=== PATIENT | female | born 1970 | race Two or more races ===

== ENCOUNTER 2017-01-13 11:07 | Emergency (ER) | payer OTHER ==
[~2017-01-13] VITALS: Ht 162.6 cm; Wt 84.6 kg
[~2017-01-13 11:07] MED LIST: ATEN50TA PO; CHOL20009 PO; FERR325T72 PO; FEXO180T81 PO; FLUT16SP2 NS; LISI1TAB7 PO; OMEP20CA5 PO; VALS160T3 PO
--- NOTE | 2017-01-13 11:30 | PHYS DOC ---
Past History Past Medical History: GERD, Hypertension, IBS, Other Past Surgical History: Other Smoking: Quit Greater Than 1 Year Alcohol Use: None Drug Use: None Adult General Chief Complaint Chief Complaint: HAND PROBLEM HPI HPI Patient is a 46-year-old female complaining of pain in her left hand, wrist, and forearm. She has not had any injury to this area. 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 She is right-handed. She noted that her left hand hurts when she approximates her thumb and index finger, and it hurts all the way down into her wrist and ventral aspect of her forearm. She's never had this before. She felt like she could not go to work today because it hurts so much and she does use her left hand at work. She took Tylenol without relief. She denies pain in any other joint. Review of Systems Review of Systems Constitutional: Denies fever or chills [] Musculoskeletal: Denies pain in any other joint Allergies Allergies Allergies Coded Allergies Type Severity Reaction Last Updated Verified Penicillins Allergy Intermediate Rash 03/23/14 Yes Physical Exam Physical Exam Constitutional: Well developed, well nourished, no acute distress, non-toxic appearance. Alert, mentating normally. HENT: Normocephalic, atraumatic, bilateral external ears normal, nose normal. [ ] Eyes: conjunctiva normal, no discharge. [] Skin: Warm, dry, no erythema, no rash. [] Extremities: Left hand without swelling, redness, or deformity. Mild tenderness to palpation of the thenar eminence and proximally over the tendons of the ventral aspect of the wrist. Full range of motion of the fingers is present with some pain over the wrist tendons. Neurologic: Alert and oriented X 3, normal motor function, normal sensory function, no focal deficits noted. [] EKG EKG [] Radiology/Procedures Radiology/Procedures [] Course & Med Decision Making Course & Med Decision Making Pertinent Labs and Imaging studies reviewed. (See chart for details) 46-year-old right-handed female presents with 2 days of left hand, wrist, and forearm pain that sounds like tendinitis. She has not had an injury. She has not had any recent overuse pattern or change in use. There is no indication for x-ray today. Discussed with her ice, instead, she does have a PCP to follow up if not improving with this treatment. She was placed in a Velcro splint. [] Dragon Disclaimer Dragon Disclaimer This chart was dictated in whole or in part using Voice Recognition software in a busy, high-work load, and often noisy Emergency Department environment. It may contain unintended and wholly unrecognized errors or omissions. Departure Departure: Impression: Primary Impression: Left wrist tendinitis Disposition: HOME, SELF-CARE Condition: STABLE Referrals: JACKIE LOVE (PCP) Additional Instructions: As we discussed, I believe your pain is from tendinitis, inflamed tendons in the left hand and wrist. I recommend resting the tendons by using the Velcro wrist splint for 3-5 days. You may remove it to shower and wash your hands.. It night for 1-2 days, then you can decide whether it feels better if you do or do not wear it at night and decide based on that. Ice 15-20 minutes out of every 1-2 hours for pain and inflammation. Ibuprofen 600 mg every 6-8 hours regularly for 2-3 days then as needed. If not improving after 3-5 days, see your doctor for recheck. ENZO BUCHANAN MD January 13, 2017 11:30
[2017-01-13 11:42] VITALS: BP 148/58
== END 2017-01-13 11:38 | disposition home or self-care (01) ==
LOC: ER 11:07
DX: M77.8 Other enthesopathies, not elsewhere classified (principal); I10 Essential (primary) hypertension; K21.9 Gastro-esophageal reflux disease without esophagitis; K58.9 Irritable bowel syndrome, unspecified; Z87.891 Personal history of nicotine dependence; Z88.0 Allergy status to penicillin
CPT/HCPCS: 29125; 99283-25

== ENCOUNTER 2017-01-19 16:42 | Observation (INO) | payer OTHER ==
[~2017-01-19] VITALS: Ht 162.6 cm; Wt 82.7 kg
[2017-01-19] VITALS (8 sets, daily range): BP systolic 132–150; BP diastolic 54–76
[2017-01-19 18:11] LABS: BASO % 0 % (0-3); EOS % 0 % (0-3); LYMPH # 1.3 x10^3/uL (1.0-4.8); LYMPH % 11 % (24-48); MEAN CORPUSCULAR HEMOGLOBIN 15 pg (25-35); MEAN CORPUSCULAR HGB CONC 28 g/dL (31-37); MEAN CORPUSCULAR VOLUME 54 fL (79-100); MONO # 0.3 x10^3/uL (0.0-1.1); MONO % 3 % (0-9); NEUT # 10.5 x10^3uL (1.8-7.7); NEUT % 86 % (31-73); PLATELET COUNT 308 x10^3/uL (140-400); RED BLOOD COUNT 4.09 x10^6/uL (3.50-5.40); RED CELL DISTRIBUTION WIDTH 22.2 % (11.5-14.5); WHITE BLOOD COUNT 12.1 x10^3/uL (4.0-11.0)
--- NOTE | 2017-01-19 18:11 | PHYS DOC ---
Text Text Patient with chronic anemia likely related to menorrhagia. Patient symptomatic with activity, hemoglobin 6.2. Dr. Dai to admit with anticipated transfusion. (PUNEET MENDENHALL DO) General Chief Complaint: ABNORMAL LABS Stated Complaint: anemia Time Seen by MD: 17:23 Source: patient Exam Limitations: no limitations Problems: (SACHI FALLON DO) History of Present Illness Initial Comments Pt is 46/F to ED sent by Dr Bueno at [place] for anemia. Dr Bueno called and gave me report, pt was seen today for allergy symptoms and mentioned she'd been fatigued. Labs drawn to go over later this week, however critical Hb 6.1 "very microcytic" reported. Dr Bueno sent pt to ED for further eval. Pt states she used to take iron supplements, about one year ago states her doctor told her she wasn't anemic and recommended d/c iron supplements. Pt has noticed past 3 weeks or so KISER when climbing stairs and occasional global REINA. No cp/sob, pt currently menstruating but no abnormal vaginal bleeding. No h/o easy bruising/bleeding, last labs 06/10 Hb 14.1 normocytic. Timing/Duration: getting worse (3 wks) Severity: severe Modifying Factors: worse with movement, improves with rest Associated Symptoms: headaches, shortness of breath, other (SACHI FALLON DO) Allergies: Coded Allergies: Penicillins (Verified Allergy, Intermediate, Rash, 03/23/14) Past Medical History Medical History: other (HTN, IBS, iron deficiency anemia) Surgical History: noncontributory (SACHI FALLON DO) Social History Smoker: non-smoker Alcohol: none Drugs: none (SACHI FALLON DO) Review of Systems Constitutional: denies chills, denies diaphoresis, denies fever, malaise Respiratory: see HPI, denies cough, shortness of breath, denies wheezing Cardiovascular: denies chest pain, denies palpitations, denies syncope Gastrointestinal: denies abdominal pain, denies diarrhea, denies nausea, denies vomiting Musculoskeletal: denies back pain, denies joint swelling, denies neck pain Psychiatric/Neurological: see HPI, denies numbness, denies paresthesia, denies weakness Hematologic/Lymphatic: see HPI, denies blood clots, denies easy bleeding, denies easy bruising (SACHI FALLON DO) Physical Exam General Appearance: WD/WN, no apparent distress Eyes: bilateral eye normal inspection, bilateral eye PERRL, bilateral eye EOMI Ear, Nose, Throat: hearing grossly normal, normal ENT inspection, normal pharynx Neck: non-tender, supple Respiratory: normal breath sounds, no respiratory distress Cardiovascular: normal peripheral pulses, regular rate, rhythm Gastrointestinal: non tender, soft Back: no CVA tenderness, no vertebral tenderness Extremities: non-tender, normal inspection Neurologic/Psychiatric: 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 See that documentation for results/disposition. (SACHI FALLON DO) SACHI FALLON DO January 19, 2017 18:11 PUNEET MENDENHALL DO January 20, 2017 00:22
[2017-01-19 18:17] LABS: CALCIUM 9.2 mg/dL (8.5-10.1); CREATININE 0.7 mg/dL (0.6-1.0); GFR 90.1; POTASSIUM 3.7 mmol/L (3.5-5.1)
[2017-01-19 18:18] LABS: HEMOGLOBIN 6.2 g/dL (12.0-15.5)
[2017-01-19] MEDS ORDERED: ONDANSETRON PF 4 MG/2 ML VIAL. IV PRN (18:45)
[2017-01-19] MEDS ORDERED: IV NORMAL SALINE 250ML 250 ML ONE (19:49)
[2017-01-19 22:33] LABS: ANISOCYTOSIS MOD; HYPOCHROMIA MOD; MICROCYTOSIS MOD; OVALOCYTES FEW; PLT ESTIMATE ADEQUATE (ADEQUATE); TARGET CELLS FEW; TEAR DROP CELLS FEW
[2017-01-19 22:34] LABS: POLYCHROMASIA PRESENT
[2017-01-20] VITALS (8 sets, daily range): BP systolic 122–144; BP diastolic 58–77
[2017-01-20] MEDS ORDERED: VALS1TAB8 PO (01:48)
[2017-01-20 06:17] LABS: BASO # 0.1 x10^3/uL (0.0-0.2); BASO % 1 % (0-3); EOS # 0.1 x10^3/uL (0.0-0.7); EOS % 1 % (0-3); HEMATOCRIT 27.7 % (36.0-47.0); LYMPH # 2.7 x10^3/uL (1.0-4.8); LYMPH % 21 % (24-48); MEAN CORPUSCULAR HEMOGLOBIN 19 pg (25-35); MEAN CORPUSCULAR HGB CONC 31 g/dL (31-37); MEAN CORPUSCULAR VOLUME 61 fL (79-100); MONO # 0.8 x10^3/uL (0.0-1.1); MONO % 6 % (0-9); NEUT # 9.2 x10^3uL (1.8-7.7); NEUT % 72 % (31-73); PLATELET COUNT 263 x10^3/uL (140-400); RED BLOOD COUNT 4.53 x10^6/uL (3.50-5.40); RED CELL DISTRIBUTION WIDTH 33.2 % (11.5-14.5); WHITE BLOOD COUNT 12.9 x10^3/uL (4.0-11.0)
[2017-01-20 06:20] LABS: HEMOGLOBIN 8.5 g/dL (12.0-15.5)
[2017-01-20] MEDS ORDERED: IRON SUCROSE COMPLEX 200 MG in IV NORMAL SALINE 100ML 100 ML IV ONE (14:00)
--- NOTE | 2017-01-20 17:32 | HP ---
ADMIT DATE: 01/19/2017 HISTORY OF PRESENT ILLNESS: The patient is a 46-year-old , who was sent to the Emergency Room by her primary care physician from [place] for severe anemia. She apparently went there for treatment of her seasonal allergy and complained that she is markedly fatigued, so had lab drawn and showed that her hemoglobin was only 6.1 and her MCV was extremely low. She was sent to the Emergency Room at [facility] for further evaluation and treatment. Apparently, the patient stated that she is having marked weakness and fatigue. She has also had noticed for the last 3 weeks that she is dyspneic on exertion when climbing stairs and occasional global headache; however, denied any chest pain or shortness of breath at rest. She is still having her periods. In fact, yesterday was the last day of her last period. She stated that her periods are regular, it lasts about 5 days. She denied any hematemesis, melena or hematochezia. Denied any hematuria. Denied any easy bruising or bleeding. Her last hemoglobin was on 06/10/2016 and was 14.1 and at that time she was normochromic normocytic. Her lab work that was done in the Emergency Room confirmed that she is anemic with hemoglobin 6.2 and MCV of 54 and therefore, the patient was admitted and she received 2 units of packed RBCs. PAST MEDICAL HISTORY: Significant for iron deficiency anemia treated before and investigated the upper and lower GI endoscopy. She is known to have hypertension and acid reflux. She has also lactose intolerance, irritable bowel syndrome and degenerative disk disease. PAST SURGICAL HISTORY: Significant for left ankle surgery, together with upper GI endoscopy and colonoscopy. ALLERGIES: She is allergic to PENICILLINS. MEDICATIONS: She is currently on following medications: She is on atenolol 50 mg once a day, cholecalciferol for vitamin D3 2000 international units once a day, fexofenadine for Kadi 180 mg once a day, Flonase 2 sprays to each nostril once a day, omeprazole for Prilosec 20 mg once a day, valsartan/hydrochlorothiazide 160/12.5 mg once a day. FAMILY HISTORY: She has 6 brothers and 1 sister. Her father at the age of 40 because of myocardial infarction. Mother is still alive at age of 62 and is known to have diabetes and hypertension. SOCIAL HISTORY: She is , has 1 daughter, never smoked. Does not drink alcohol or use any recreational drugs. 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 She is originally from [facility]. REVIEW OF SYSTEMS: The patient denied any blurring of vision, cataract, glaucoma or macular degeneration. Denied any earache, tinnitus or sensorineural deafness. Denied any nosebleeds, stuffy nose or postnasal drip. Denied any sore throat, sore tongue, toothache, hoarseness of voice or difficulty swallowing. Denied any nausea, vomiting, diarrhea or constipation. Denied any hematemesis, melena or hematochezia. Denied any dysuria, frequency or hematuria. Denied any chest pain. Did complain of shortness of breath on exertion. Denied any cough, phlegm or hemoptysis. Denied any chills, rigors or fever. Denied any dizziness, lightheadedness, or vertigo. PHYSICAL EXAMINATION: GENERAL: On arrival to the Emergency Room; she was extremely pale, but not jaundiced or cyanosed. No lymphadenopathy, no thyromegaly. No jugular venous distention. No lower limb edema. VITAL SIGNS: Her heart rate was 88, blood pressure was 131/54, temperature was 98.3, respiratory rate was 22 and oxygen saturation was 96%. HEAD, EYES, EARS, NOSE AND THROAT: Showed normocephalic, atraumatic. NECK: Supple. HEART: Showed normal first and second heart sounds with no gallop, rub or murmur. CHEST: Clear to auscultation. No crepitation or rhonchi. ABDOMEN: Distended, soft, nontender. No guarding or rigidity. No organomegaly. All hernial orifices intact. Bowel sounds normal. NEUROLOGIC: She is awake, alert, responding appropriately. Her cranial nerves intact. EXTREMITIES: She moves extremities without difficulty. She ambulates without assistance or assistive devices. LABORATORY DATA: On arrival to the Emergency Room, her lab work showed that her white cell count was 12,100, hemoglobin was 6.2, hematocrit 22, MCV 54 and platelet count of 308,000 with a manual differential showed 86% polymorphs, 11% lymphocytes and 3% monocytes. Her chemistry showed serum sodium of 139, potassium 3.7, chloride 103, bicarbonate 26, anion gap of 10, BUN 8, creatinine 0.7, estimated GFR was 90 mL per minute. Her glucose was 112, calcium was 9.2, transferrin was 448 and serum ferritin was only 3 ng/mL, normal range of 8-252. ASSESSMENT AND PLAN: The patient admitted with severe microcytic hypochromic anemia consistent with iron deficiency anemia. She has received 2 units of packed RBCs. We will continue with all her other medications. We will resume all her home medications. We will treat her with IV Venofer and will start her on ferrous sulfate and ascorbic acid. ANJU VELEZ MD DR: TRACI/deshaun JOB#: [id number] / [id number]
[2017-01-20] MEDS: FERROUS SULFATE 325 MG TABLET PO SCH (21:18)
[2017-01-20] MEDS: ASCORBIC ACID 500 MG TABLET PO SCH (21:18)
[2017-01-21 06:12] LABS: HEMOGLOBIN 8.6 g/dL (12.0-15.5); RED BLOOD COUNT 4.6 x10^6/uL (3.50-5.40); RED CELL DISTRIBUTION WIDTH 33.9 % (11.5-14.5); WHITE BLOOD COUNT 11.6 x10^3/uL (4.0-11.0)
[2017-01-21 06:19] LABS: ALBUMIN 3.1 g/dL (3.4-5.0); ALBUMIN/GLOBULIN RATIO 0.8 (1.0-1.7); CALCIUM 8.5 mg/dL (8.5-10.1); CREATININE 0.7 mg/dL (0.6-1.0); GFR 90.1; POTASSIUM 3.3 mmol/L (3.5-5.1); TOTAL BILIRUBIN 0.4 mg/dL (0.2-1.0); TOTAL PROTEIN 6.9 g/dL (6.4-8.2)
[2017-01-21] MEDS ORDERED: PANTOPRAZOLE 40 MG TABLET. PO SCH (07:30)
[2017-01-21] MEDS: FERROUS SULFATE 325 MG TABLET PO SCH (08:31)
[2017-01-21] MEDS: ASCORBIC ACID 500 MG TABLET PO SCH (08:31)
[2017-01-21] MEDS ORDERED: AZEL137S3 NS (08:43)
[2017-01-21] MEDS ORDERED: MULT1TAB52 PO (08:43)
[2017-01-21] MEDS ORDERED: IRON SUCROSE COMPLEX 500 MG in IV NORMAL SALINE 250ML 250 ML IV ONE (08:45)
[2017-01-21] MEDS ORDERED: FLUTICASONE 50MCG/NASAL SPRAY 16GM BOTTLE. NS SCH (09:00)
[2017-01-21] MEDS ORDERED: CETIRIZINE HCL 10 MG TABLET PO SCH (09:00)
[2017-01-21] MEDS ORDERED: LOSARTAN 50 MG TABLET. PO SCH (09:00)
[2017-01-21] MEDS ORDERED: VALSARTAN PO SCH (09:00)
[2017-01-21] MEDS ORDERED: HYDROCHLOROTHIAZIDE PO SCH (09:00)
[2017-01-21] MEDS ORDERED: ATENOLOL 50 MG TABLET PO SCH (09:00)
[2017-01-21] MEDS ORDERED: hydroCHLOROthiazide 12.5 MG CAPSULE PO SCH (09:00)
[2017-01-21] MEDS ORDERED: CHOLECALCIFEROL (VITAMIN D3) 1,000 UNIT TABLET PO SCH (09:00)
[2017-01-21 09:28] VITALS: BP 128/60
[2017-01-21 10:25] VITALS: BP 134/53
[2017-01-21 11:26] VITALS: BP 133/58
[2017-01-21] MEDS ORDERED: FERR-26 PO (12:29)
[2017-01-21] MEDS ORDERED: ASCO500T3 PO (12:29)
--- NOTE | 2017-01-21 22:27 | DS ---
DATE OF DISCHARGE: 01/21/2017 HISTORY OF PRESENT ILLNESS: The patient is a 46-year-old female patient, who apparently was seen at [facility] for her seasonal allergy; however, she did complain of tiredness, and easy fatigability and her lab work there showed that her hemoglobin was only 6.1 with severe microcytic anemia with an MCV of only 52 and she was sent to the Emergency Room of [facility] and lab work confirmed that she was indeed anemic with severe microcytic hypochromic anemia. In fact, when she arrived to the Emergency Room, her hemoglobin was 6.2, hematocrit 22, and she received 2 units of packed RBCs. LABORATORY DATA: Showed that her serum iron was only 18. Total iron binding capacity was 481, iron percent saturation was only 4% and her serum ferritin was only 3 ng/ mL, all consistent with severe iron deficiency anemia. She apparently had similar presentation a few years ago, when she was extensively investigated with upper and lower GI endoscopy and was on iron supplementation and that was stopped. The only other possible cause of her severe iron deficiency is probably that she is postmenopausal and has dysfunctional uterine bleeding. We did start her on oral ferrous sulfate and ascorbic acid, and she received 2 doses of Venofer, initially 200 mg and today she received another 500 mg IV with the plan to continue on ferrous sulfate 325 mg twice a day with meal as well as ascorbic acid, to follow with her primary care physician. She also needs to be seen by, I recommended that she should see a wax bleacher that she might require hysterectomy and bilateral salpingo-oophorectomy. PHYSICAL EXAMINATION: GENERAL: When I saw her this afternoon, she looked well and was clearly in no apparent respiratory distress. She was pale, no jaundiced, cyanosis or thyromegaly. No jugular venous distension. No lower limb edema. VITAL SIGNS: Her heart rate was 66, blood pressure 133/58, temperature was 98.2, respiratory rate was 18 and oxygen saturation was 94%. The rest of clinical examination is unremarkable, has not really changed. LABORATORY DATA: Her lab work this morning showed a serum sodium of 140, potassium 3.3, chloride 104, bicarbonate was 26, anion gap of 10, BUN 8, creatinine 0.7, estimated GFR was 90 mL per minute. Her glucose was 93, calcium was 8.5. Total bilirubin, AST, ALT, alkaline phosphatase were normal. Total protein was 6.9 and albumin was 3.1. Her serum iron was 18, total iron binding capacity was 481, percent saturation was 4, and transferrin was extremely high at 448 and serum ferritin was extremely low at 3 ng/mL. Her white cell count was 11,600, hemoglobin was 8.6, hematocrit 28, MCV was 61, and platelet count 255,000. FINAL DISCHARGE DIAGNOSES: Severe iron deficiency anemia that is microcytic hypochromic with an MCV of only 52 on admission, most likely explanation for her anemia is that she has dysfunction bleeding. She has been investigated before with upper and lower GI endoscopy without any obvious source of bleeding. Other medical problems include hypertension, acid reflux, lactose intolerance, irritable bowel syndrome and degenerative disk disease. The patient was advised to follow up with her primary care physician to continue with iron for at least 3 months to replenish her stores and she also was advised to make an appointment with wax bleacher that she might have dysfunctional uterine bleeding as she is perimenopausal. ANJU VELEZ MD DR: TRACI/deshaun JOB#: [id number] / [id number]
--- NOTE | 2017-01-22 04:20 | PN ---
DATE: 01/20/2017 SUBJECTIVE: The patient is a 46-year-old female patient who was seen yesterday at the ____ for fatigue, and lab work showed that she has extremely severe microcytic hypochromic anemia with hemoglobin of only 6.1, that lab work was confirmed at the Emergency Room and she was given 2 units of packed RBCs. Her serum ferritin was only 3. Her serum iron, total iron binding capacity is still pending at the time of this dictation. OBJECTIVE: GENERAL: When I examined her today, she looked well and was clearly in no apparent respiratory distress, pale, but no jaundice, cyanosis, or thyromegaly. No jugular venous distention. No limb edema. VITAL SIGNS: Her heart rate was 67, blood pressure 122/65, temperature was 98.2, respiratory rate was 20 and oxygen saturation was 96% on room air. The rest of clinical examination is unremarkable, has not really changed. Her intake and output was incompletely recorded. LABORATORY DATA: Her lab work this morning showed a white cell count of 12,900, hemoglobin 8.5, hematocrit 27.7, MCV 61 and platelet count of 263,000. Her serum iron, total iron binding capacity and serum ferritin is still pending at the time of this dictation. However, her serum ferritin was extremely low at only 3 ng/mL with normal range of 8 to 252. My plan is to start her on ferrous sulfate and ascorbic acid. She will also receive Venofer IV 200 mg in 100 mL of normal saline today and tomorrow will be the higher dose and can be discharged. ASSESSMENT: Severe iron-deficiency anemia, most likely due to dysfunctional uterine bleeding as apparently her most recent hemoglobin was 14.1 in May 2015. At that time, the anemia was normochromic normocytic. She does have a history of iron-deficiency anemia and apparently was investigated and was on iron before. Other issues include hypertension, lactose intolerance, irritable bowel syndrome, and degenerative disk disease. ANJU VELEZ MD DR: TRACI/deshaun JOB#: [id number] / [id number]
== END 2017-01-21 13:19 | disposition home or self-care (01) ==
LOC: ER 16:42 → ICU 18:39
PROVIDERS: ADMIT Internal Medicine; ATTEND Internal Medicine
DX: D50.9 Iron deficiency anemia, unspecified (principal); E73.9 Lactose intolerance, unspecified; I10 Essential (primary) hypertension; K58.9 Irritable bowel syndrome, unspecified
CPT/HCPCS: 36415; 80048; 80053; 82728; 83540; 83550; 84466; 85008; 85027; 86850; 86900; 86901; 86920; 87641; 96365; 96366; 99285; G0378; J1756; J7050; P9016; G0379

== ENCOUNTER → 2017-01-24 | Outpatient (CLI) | payer OTHER ==
[2017-01-21 11:26] VITALS: BP 133/58
[~2017-01-24] MED LIST changes: +ASCO500T3 PO; +AZEL137S3 NS; +FERR-26 PO; +MULT1TAB52 PO; +VALS1TAB8 PO
--- NOTE | 2017-01-24 09:25 | RAD ---
Left upper extremity venous Doppler ultrasound History: Left arm swelling. Medial elbow erythema and warmth. Comparison: None. Procedure: Color Doppler, spectral Doppler, and grayscale images are obtained with and without compression of the upper extremity veins. Imaging included the internal jugular, subclavian, axillary, brachial, cephalic, and basilic veins. Findings: There is normal flow and compressibility of all visualized vein segments. No venous thrombosis is identified. Impression: No evidence of left upper extremity venous thrombosis.
== END | disposition home or self-care (01) ==
LOC: US 07:48
PROVIDERS: ATTEND Family Medicine
DX: I82.612 Acute embolism and thrombosis of superficial veins of left upper extremity (principal); M25.842 Other specified joint disorders, left hand; M79.89 Other specified soft tissue disorders
CPT/HCPCS: 93971

== ENCOUNTER 2017-07-25 17:07 | Emergency (ER) | payer OTHER ==
[~2017-07-25] VITALS: Ht 162.6 cm; Wt 84.6 kg
[2017-07-25] MEDS ORDERED: LIDOCAINE 2% 20 ML VIAL. IJ ONE (17:45)
[2017-07-25 18:15] VITALS: BP 165/78
--- NOTE | 2017-07-25 18:15 | PHYS DOC ---
Past History Past Medical History: Anemia, Hypertension Past Surgical History: Other Smoking: Quit Greater Than 1 Year Alcohol Use: None Drug Use: None Adult General Chief Complaint Chief Complaint: ABSCESS HPI HPI Patient is a 47-year-old female who presents with an abscess on the lateral aspect of her right breast for about a week. No fever or chills. No abscess elsewhere. Denies injury to the area. Review of Systems Review of Systems Constitutional: Denies fever or chills [] Current Medications Current Medications Current Medications Medications (Trade) Dose Ordered Sig/Chad Start Time Stop Time Status Last Admin Dose Admin Lidocaine HCl 20 ml 1X ONCE 07/25/17 17:45 07/25/17 17:47 DC Allergies Allergies Allergies Coded Allergies Type Severity Reaction Last Updated Verified Penicillins Allergy Intermediate Rash 03/23/14 Yes Physical Exam Physical Exam Constitutional: Well developed, well nourished, no acute distress, non-toxic appearance. Alert, nontoxic, afebrile. HENT: Normocephalic, atraumatic, bilateral external ears normal, nose normal. [ ] Eyes: conjunctiva normal, no discharge. [] Neck: Normal range of motion, no stridor. [] Skin: Warm, dry, no erythema, no rash. On the lateral aspect of the right breast there is a superficial abscess without surrounding cellulitis. There is a small area of drainage. The abscess palpates to about 1 x 2 cm. Extremities: No tenderness, no cyanosis, no clubbing, ROM intact, no edema. [] Neurologic: Alert and oriented X 3, normal motor function, no focal deficits noted. [] Current Patient Data Vital Signs Vital Signs Date Time Temp Pulse Resp B/P (MAP) Pulse Ox O2 Delivery O2 Flow Rate FiO2 07/25/17 17:23 98.9 90 22 Room Air EKG EKG [] Radiology/Procedures Radiology/Procedures Procedure: Incision and drainage of abscess by me The skin was prepped with Betadine. The area was anesthetized with 2% lidocaine plain. A 2 cm incision was made over the area of maximum fluctuance. Purulent material was obtained. The abscess cavity was probed with hemostats, no significant loculations were noted. Additional material was evacuated. The abscess cavity was irrigated with normal saline using an irrigation catheter on a syringe. The area was bandaged with a gauze bandage.[] Course & Med Decision Making Course & Med Decision Making Pertinent Labs and Imaging studies reviewed. (See chart for details) [] Dragon Disclaimer Dragon Disclaimer This electronic medical record was generated, in whole or in part, using a voice recognition dictation system. Departure Departure: Impression: Primary Impression: Abscess of right breast Disposition: HOME, SELF-CARE Condition: IMPROVED Referrals: YOU WATTS DO (PCP) Patient Instructions: Abscess, Care After Additional Instructions: Leave the dressing on and the packing in place tonight. Tomorrow, you may bathe or shower. When the packing comes out, that is fine. After the packing comes out, wash once or twice a day with a washcloth and warm soapy water. It will continue to drain some bloody/pus type material as it heals up from the inside out. Keep it bandaged to absorb the drainage. It will take a week or 2 to heal up from the inside out. ENZO BUCHANAN MD Jul 25, 2017 18:15
== END 2017-07-25 18:17 | disposition home or self-care (01) ==
LOC: ER 17:07
DX: N61.1 Abscess of the breast and nipple (principal); I10 Essential (primary) hypertension; Z86.2 Personal history of diseases of the blood and blood-forming organs and certain disorders involving the immune mechanism; Z87.891 Personal history of nicotine dependence; Z88.0 Allergy status to penicillin
CPT/HCPCS: 10060; 99283-25; J2001

== ENCOUNTER 2017-08-01 11:35 | Emergency (ER) | payer OTHER ==
[~2017-08-01] VITALS: Ht 162.6 cm; Wt 84.6 kg
[2017-08-01 11:45] VITALS: BP 162/97
--- NOTE | 2017-08-01 12:08 | PHYS DOC ---
Past History Past Medical History: Hypertension Past Surgical History: No Surgical History Smoking: Quit Greater Than 1 Year Alcohol Use: None Drug Use: None Adult General Chief Complaint Chief Complaint: WOUND CHECK [facility] Patient is a 47 year old F who presents for a wound check. She was seen in the ED about 1 week ago with a small simple abcess which was drained and packed. She feels that her wound has stopped draining. She does not feel that her symptoms are worsened. She came to the ED to have her wound evaluated Review of Systems Review of Systems Constitutional: Denies fever or chills [] Eyes: Denies change in visual acuity, redness, or eye pain [] HENT: Denies nasal congestion or sore throat [] Respiratory: Denies cough or shortness of breath [] Cardiovascular: No additional information not addressed in HPI [] GI: Denies abdominal pain, nausea, vomiting, bloody stools or diarrhea [] : Denies dysuria or hematuria [] Musculoskeletal: Denies back pain or joint pain [] Integument: Denies rash or skin lesions [] Neurologic: Denies headache, focal weakness or sensory changes [] Endocrine: Denies polyuria or polydipsia [] All other systems were reviewed and found to be within normal limits, except as documented in this note. Family History Family History non contributory Current Medications Current Medications Medications reviewed Allergies Allergies Allergies Coded Allergies Type Severity Reaction Last Updated Verified Penicillins Allergy Intermediate Rash 03/23/14 Yes Physical Exam Physical Exam Constitutional: Well developed, well nourished, no acute distress, non-toxic appearance. [] HENT: Normocephalic, atraumatic, bilateral external ears normal, oropharynx moist, no oral exudates, nose normal. [] Eyes: PERRLA, EOMI, conjunctiva normal, no discharge. [] Neck: Normal range of motion, no tenderness, supple, no stridor. [] Cardiovascular:Heart rate regular rhythm, no murmur [] Lungs & Thorax: Bilateral breath sounds clear to auscultation [] Abdomen: Bowel sounds normal, soft, no tenderness, no masses, no pulsatile masses. [] Skin: 1cm wound with well granulated edges without significant drainage. approximally 1 cm depth Back: No tenderness, no CVA tenderness. [] Extremities: No tenderness, no cyanosis, no clubbing, ROM intact, no edema. [] Neurologic: Alert and oriented X 3, normal motor function, normal sensory function, no focal deficits noted. [] Psychologic: Affect normal, judgement normal, mood normal. [] Current Patient Data Vital Signs Vital Signs Date Time Temp Pulse Resp B/P (MAP) Pulse Ox O2 Delivery O2 Flow Rate FiO2 08/01/17 11:45 98.3 78 98 Room Air EKG EKG [] Radiology/Procedures Radiology/Procedures the wound was cleaned with sterile water, Iodoform packing was placed in the wound and the wound was covered Course & Med Decision Making Course & Med Decision Making Pertinent Labs and Imaging studies reviewed. (See chart for details) [] Dragon Disclaimer Dragon Disclaimer This electronic medical record was generated, in whole or in part, using a voice recognition dictation system. Departure Departure: Impression: Primary Impression: Encounter for evaluation of wound Disposition: HOME, SELF-CARE Condition: STABLE Referrals: YOU WATTS DO (PCP) Patient Instructions: Delayed Wound Closure, Wound Check Additional Instructions: Selma was seen in the ED for a wound evaluation. No emergency medical condition was found on history and physical exam. Her wound was cleaned and dressed. She was advised to continue changing dressings until her wound is closed. She was advised to pack the wound gently until the packing falls out. She was advised to clean with soap and water. She was encouraged to seek medical care if she develops new or worsening symptoms. She was advised to follow up with her primary care doctor as needed for further management. ALENA RODAS MD Aug 01, 2017 12:08
== END 2017-08-01 12:18 | disposition home or self-care (01) ==
LOC: ER 11:35
DX: Z48.01 Encounter for change or removal of surgical wound dressing (principal); I10 Essential (primary) hypertension; Z87.891 Personal history of nicotine dependence; Z88.0 Allergy status to penicillin
CPT/HCPCS: 99283

== ENCOUNTER 2018-03-18 18:36 | Emergency (ER) | payer OTHER ==
[~2018-03-18] VITALS: Ht 162.6 cm; Wt 90.0 kg
[~2018-03-18 18:36] MED LIST changes: -FERR-26 PO; +FERR325T14 PO
--- NOTE | 2018-03-18 19:09 | PHYS DOC ---
Past History Past Medical History: Anemia, Hypertension, IBS, UTI Past Surgical History: No Surgical History Smoking: Quit Greater Than 1 Year Alcohol Use: None Drug Use: None Adult General Chief Complaint Chief Complaint: PAIN ON URINATION HPI HPI 48-year-old female presents with one-day history of dysuria and increased urinary frequency. Patient states this feels like UTIs that she's had in the past. She denies hematuria. He has not had fever or chills. She denies chest pain, shortness of breath, diarrhea, or constipation. She has no other complaints. She is allergic to penicillin. Review of Systems Review of Systems Constitutional: Denies fever or chills [] Eyes: Denies change in visual acuity, redness, or eye pain [] HENT: Denies nasal congestion or sore throat [] Respiratory: Denies cough or shortness of breath [] Cardiovascular: No additional information not addressed in HPI [] GI: Denies abdominal pain, nausea, vomiting, bloody stools or diarrhea [] : Dysuria, increased urinary frequency[] Musculoskeletal: Denies back pain or joint pain [] Integument: Denies rash or skin lesions [] Neurologic: Denies headache, focal weakness or sensory changes [] Endocrine: Denies polyuria or polydipsia [] All other systems were reviewed and found to be within normal limits, except as documented in this note. Allergies Allergies Allergies Coded Allergies Type Severity Reaction Last Updated Verified Penicillins Allergy Intermediate Rash 03/23/14 Yes Physical Exam Physical Exam Constitutional: Well developed, well nourished, no acute distress, non-toxic appearance. [] HENT: Normocephalic, atraumatic, bilateral external ears normal, oropharynx moist, no oral exudates, nose normal. [] Eyes: PERRLA, EOMI, conjunctiva normal, no discharge. [] Neck: Normal range of motion, no tenderness, supple, no stridor. [] Cardiovascular:Heart rate regular rhythm, no murmur [] Lungs & Thorax: Bilateral breath sounds clear to auscultation [] Abdomen: Suprapubic tenderness, mild[] Skin: Warm, dry, no erythema, no rash. [] Back: No tenderness, no CVA tenderness. [] Extremities: No tenderness, no cyanosis, no clubbing, ROM intact, no edema. [] Neurologic: Alert and oriented X 3, normal motor function, normal sensory function, no focal deficits noted. [] Psychologic: Affect normal, judgement normal, mood normal. [] Current Patient Data Vital Signs Vital Signs Date Time Temp Pulse Resp B/P (MAP) Pulse Ox O2 Delivery O2 Flow Rate FiO2 03/18/18 19:03 84 18 173/99 (123) 96 Room Air 03/18/18 18:50 99.3 EKG EKG [] Radiology/Procedures Radiology/Procedures [] Course & Med Decision Making Course & Med Decision Making Pertinent Labs and Imaging studies reviewed. (See chart for details) The patient's urine is positive for UTI. I will give her her first dose of Bactrim DS in the ED and a prescription at discharge. [] Dragon Disclaimer Dragon Disclaimer This electronic medical record was generated, in whole or in part, using a voice recognition dictation system. Departure Departure: Referrals: YOU WATTS DO (PCP) PUNEET MOSLEY DO Mar 18, 2018 19:09
[2018-03-18 19:26] LABS: BILIRUBIN,URINE NEG (NEG); CLARITY,URINE CLOUDY; COLOR,URINE YELLOW; GLUCOSE,URINE NEG (NEG); NITRITE,URINE NEG (NEG); UROBILINOGEN,URINE 0.2 mg/dL (0.2 mg/dL)
[2018-03-18 19:27] LABS: BACTERIA,URINE MANY /HPF (0-FEW); SQUAMOUS EPITHELIAL CELL,UR MOD /LPF; WBC,URINE >40 /HPF (0-4)
[2018-03-18] MEDS ORDERED: SULF1TAB24 PO (19:49)
[2018-03-18] MEDS ORDERED: SMZ/TMP 800/160MG TABLET. PO ONE (20:00)
[2018-03-18 20:07] VITALS: BP 155/70
== END 2018-03-18 20:17 | disposition home or self-care (01) ==
LOC: ER 18:36
DX: N39.0 Urinary tract infection, site not specified (principal); I10 Essential (primary) hypertension; K58.9 Irritable bowel syndrome, unspecified; Z87.440 Personal history of urinary (tract) infections; Z86.2 Personal history of diseases of the blood and blood-forming organs and certain disorders involving the immune mechanism; Z87.891 Personal history of nicotine dependence; Z88.0 Allergy status to penicillin
CPT/HCPCS: 81001; 87086; 99284

== ENCOUNTER 2020-10-18 07:58 | Emergency (ER) | payer OTHER ==
[~2020-10-18] VITALS: Ht 162.6 cm; Wt 90.9 kg
[~2020-10-18 07:58] MED LIST changes: +LISI1TAB20 PO; -LISI1TAB7 PO; +MULT-445 PO; -MULT1TAB52 PO; +SULF1TAB24 PO
--- NOTE | 2020-10-18 08:14 | PHYS DOC ---
Past History Past Medical History: Anemia, Hypertension, IBS, UTI Past Surgical History: No Surgical History Smoking: Quit Greater Than 1 Year Alcohol Use: None Drug Use: None Adult General HPI HPI Patient is a 50-year-old female presenting the emergency department complaining of new onset of right-sided hand pain after a fall. Patient states that she is attempting to walk outside when she slipped on a patch of ice and fall forward falling onto her right chest and catching her self with her right hand. Since that time has been having pain over the right medial portion of the hand. States that she initially had some pain over the right anterior chest but since that time states that the symptoms have improved. Denies any head injury or loss of consciousness. Patient denies any nausea, vomiting, vision changes, dizziness or lightheadedness. Review of Systems Review of Systems Constitutional: Denies fever or chills [] Eyes: Denies change in visual acuity, redness, or eye pain [] HENT: Denies nasal congestion or sore throat [] Respiratory: Denies cough or shortness of breath [] Cardiovascular: No additional information not addressed in HPI [] GI: Denies abdominal pain, nausea, vomiting, bloody stools or diarrhea [] : Denies dysuria or hematuria [] Musculoskeletal: Denies back pain or joint pain [] Integument: Denies rash or skin lesions [] Neurologic: Denies headache, focal weakness or sensory changes [] Endocrine: Denies polyuria or polydipsia [] All other systems were reviewed and found to be within normal limits, except as documented in this note. Allergies Allergies Allergies Coded Allergies Type Severity Reaction Last Updated Verified Penicillins Allergy Intermediate Rash 03/23/14 Yes Physical Exam Physical Exam Constitutional: Well developed, well nourished, no acute distress, non-toxic appearance. [] HENT: Normocephalic, atraumatic, bilateral external ears normal, oropharynx moist, no oral exudates, nose normal. [] Eyes: PERRLA, EOMI, conjunctiva normal, no discharge. [] Neck: Normal range of motion, no tenderness, supple, no stridor. [] Cardiovascular:Heart rate regular rhythm, no murmur [] Lungs & Thorax: Bilateral breath sounds clear to auscultation [] Abdomen: Bowel sounds normal, soft, no tenderness, no masses, no pulsatile masses. [] Skin: Warm, dry, no erythema, no rash. [] Back: No tenderness, no CVA tenderness. [] Extremities: Moderate tenderness over the right metacarpals primarily in the fourth and fifth, no cyanosis, no clubbing, ROM intact, no edema. [] Neurologic: Alert and oriented X 3, normal motor function, normal sensory function, no focal deficits noted. [] Psychologic: Affect normal, judgement normal, mood normal. [] EKG EKG [] Radiology/Procedures Radiology/Procedures [] Heart Score Risk Factors: Risk Factors: DM, Current or recent (<one month) smoker, HTN, HLP, family history of CAD, obesity. Risk Scores: Risk Factors: DM, Current or recent (<one month) smoker, HTN, HLP, family history of CAD, obesity. Course & Med Decision Making Course & Med Decision Making Pertinent Labs and Imaging studies reviewed. (See chart for details) 50-year-old female presented emergency department after a minor fall primarily with right-sided hand pain. At this time no indication for CT scan of the head as there is no evidence of acute intracranial hemorrhage or significant concussion. Will obtain an x-ray of the chest and the hand. Hand Xr demonstrates proximal 5th metacarpal avulsion fracture with moderate displacement. Will plan for discharge with ortho follow up. Dragon Disclaimer Dragon Disclaimer This electronic medical record was generated, in whole or in part, using a voice recognition dictation system. Departure Departure: Impression: Primary Impression: Fracture of metacarpal of right hand, closed Disposition: 01 DC HOME SELF CARE/HOMELESS Condition: GOOD Referrals: HOLLAND WOLFE MD (PCP) Patient Instructions: Hand Fracture, Fifth Metacarpal Additional Instructions: Please call to make an appointment with Dr. Maribell Martins at [phone] EMERGENCY DEPARTMENT GENERAL DISCHARGE INSTRUCTIONS Thank you for coming to [facility] Emergency Department (ED) today and trusting us with you care. We trust that you had a positive experience in our Emergency Department. If you wish to speak to the department management, you may call the Director at [phone]. YOUR FOLLOW UP INSTRUCTIONS ARE FOLLOWS: 1. Do you have a private Doctor? If you do not have a private doctor, please ask for a resource list of physicians or clinics that may be able to assist you with follow up care. 2. The Emergency Physicain has interpreted your x-rays. The X-Ray specialist will also review them. If there is a change in the findings, you will be notified in 48 hours when at all possible. 3. A lab test or culture has been done, your results will be reviewed and you will be notified if you need a change in treatment. ADDITIONAL INSTRUCTIONS AND INFORMATION: 1. Your care today has been supervised by a physician who is specially trained in emergency care. Many problems require more than one evaluation for a complete diagnosis and treatment. We recommend that you schedule your follow up appointment as recommended to ensure complete treatment of you illness or injury. If you are unable to obtain follow up care and continue to have a problem, or if your condition worsens, we recommend that you return to the ED. 2. We are not able to safely determine your condition over the phone nor are we able to give sound medical advice over the phone. For these safety reasons, if you call for medical advice we will ask you to come to the ED for further evaluation. 3. If you have any questions regarding these discharge instructions please call the ED at [phone]. SAFETY INFORMATION: In the interest of safety, wellness, and injury prevention; we encourage you to wear your sealbelt, if you smoke; quite smoking, and we encourage family to use a protective helmet for bicycling and other sporting events that present an increased risk for head injury. IF YOUR SYMPTOMS WORSEN OR NEW SYMPTOMS DEVELOP, OR YOU HAVE CONCERNS ABOUT YOUR CONDITION; OR IF YOUR CONDITION WORSENS WHILE YOU ARE WAITING FOR YOUR FOLLOW UP APPOINTMENT; EITHER CONTACT YOUR PRIMARY CARE DOCTOR, THE PHYSICIAN WHOSE NAME AND NUMBER YOU WERE GIVEN, OR RETURN TO THE ED IMMEDIATELY. ISAIAH RENE MD Oct 18, 2020 08:14
[2020-10-18] MEDS ORDERED: ACETAMINOPHEN 500 MG TABLET PO ONE (08:15)
[2020-10-18] MEDS ORDERED: IBUPROFEN 600 MG TABLET. PO ONE (08:15)
--- NOTE | 2020-10-18 09:04 | RAD ---
XR CHEST 1V History: Fall Comparison: None. Technique: Portable AP chest radiograph. Findings: The lungs are adequately and symmetrically inflated. No airspace consolidation, pleural effusion or p neumothorax. The cardiomediastinal silhouette and pulmonary vasculature are within normal limits. Sof t tissues and osseous structures are unremarkable. Impression: 1. No acute cardiopulmonary process. Electronically signed by: Eric Woodruff MD (10/18/2020 9:02 AM) [facility]
--- NOTE | 2020-10-18 09:10 | RAD ---
XR HAND_RIGHT 3 VIEWS History: Fall Comparison: None. Technique: 3 views of the right hand. Findings: Comminuted intra-articular fracture at the base of the fifth metacarpal extending into the CMC joint. Alignment remains near-anatomic. No destructive osseous lesions are seen. Mild degenerative changes about the carpus. Subchondral cystic change at the ulnar aspect of the prox imal lunate. Ulnar-sided hand soft tissue swelling. Impression: 1. Comminuted intra-articular fracture at the base of the fifth metacarpal extending into the CMC edson int. Electronically signed by: Eric Woodruff MD (10/18/2020 9:08 AM) [facility]
[2020-10-18 09:55] VITALS: BP 163/82
== END 2020-10-18 09:59 | disposition home or self-care (01) ==
LOC: ER 07:58
DX: S62.91XA Unspecified fracture of right hand, initial encounter for closed fracture (principal); I10 Essential (primary) hypertension; K58.9 Irritable bowel syndrome, unspecified; Z87.440 Personal history of urinary (tract) infections; Z86.2 Personal history of diseases of the blood and blood-forming organs and certain disorders involving the immune mechanism; Z87.891 Personal history of nicotine dependence; Z88.0 Allergy status to penicillin; W00.9XXA Unspecified fall due to ice and snow, initial encounter; Y93.01 Activity, walking, marching and hiking; Y92.89 Other specified places as the place of occurrence of the external cause; Y99.8 Other external cause status
CPT/HCPCS: 29125; 71045; 73130; 99284

== ENCOUNTER 2021-01-16 11:42 | Emergency (ER) | payer OTHER ==
[~2021-01-16] VITALS: Ht 162.6 cm; Wt 90.4 kg
[2021-01-16 12:03] VITALS: BP 164/93
[2021-01-16] MEDS ORDERED: BACITRACIN ZINC TOPICAL OINT PACKET. TP ONE (12:30)
[2021-01-16] MEDS ORDERED: BACI28.34 TP (12:39)
--- NOTE | 2021-01-16 12:39 | PHYS DOC ---
Past History Past Medical History: Diabetes, Hypertension Past Surgical History: No Surgical History Additional Past Surgical Histo: left ankle surgery Smoking: Quit Greater Than 1 Year Alcohol Use: None Drug Use: None Adult General Chief Complaint Chief Complaint: BURN/SMOKE INHALATION HPI HPI Patient is a 50-year-old female reports she accidentally burned herself with hot clark oil while making empanadas is this morning approximately 15 minutes prior to arrival to the ER today. Patient states that as she was lifting an Implanon out of the clark quiles she dropped it and it splashed in the quiles, the clark oil splashed onto her left hand and abdomen. Patient states that there is a small blister on her abdomen, reports only minor pain of less than a 1/10 on a 1-10 pain scale. Patient reports she washed it with soap and water and came to the emergency department for evaluation. Patient reports her last tetanus ministration was less than 5 years ago. Patient denies homicidal or suicidal ideation. Patient denies any other physical complaints or physical concerns. Patient reports a history of hypertension and type II diabetes, high cholesterol, seasonal allergies. Review of Systems Review of Systems Constitutional: Denies fever or chills [] Eyes: Denies change in visual acuity, redness, or eye pain [] HENT: Denies nasal congestion or sore throat [] Respiratory: Denies cough or shortness of breath [] Cardiovascular: No additional information not addressed in HPI [] GI: Denies abdominal pain, nausea, vomiting, bloody stools or diarrhea [] : Denies dysuria or hematuria [] Musculoskeletal: Denies back pain or joint pain [] Integument: Denies rash or skin lesions [] Neurologic: Denies headache, focal weakness or sensory changes [] Endocrine: Denies polyuria or polydipsia [] All other systems were reviewed and found to be within normal limits, except as documented in this note. Current Medications Current Medications Patient reports taking prescription Prilosec, metformin, hydrochlorothiazide/valsartan, aspirin, Lipitor, atenolol, vitamin D, multivitamins, Kadi, Flonase, and Astelin. Current Medications Medications (Trade) Dose Ordered Sig/Chad Start Time Stop Time Status Last Admin Dose Admin Bacitracin (Bacitracin Topical Pkt) 1 pkt 1X ONCE 01/16/21 12:30 01/16/21 12:31 UNV Allergies Allergies 14 body systems of review of systems have been reviewed. See HPI for pertinent positives and negative responses, otherwise all other systems are negative, nonpertinent or noncontributory. Allergies Coded Allergies Type Severity Reaction Last Updated Verified Penicillins Allergy Intermediate Rash 10/18/20 Yes Physical Exam Physical Exam Constitutional: Well developed, well nourished, no acute distress, non-toxic appearance. 50-year-old female no apparent distress. HENT: Normocephalic, atraumatic, bilateral external ears normal, oropharynx mo ist, no oral exudates, nose normal. Eyes: PERRLA, EOMI, conjunctiva normal, no discharge. Neck: Normal range of motion. Cardiovascular: No cyanosis, still cap refill less than 2 seconds. Lungs & Thorax: Patient in no respiratory distress, no audible adventitious lung sounds appreciated. Abdomen: Bowel sounds normal, soft, no tenderness, no masses, no pulsatile masses. Skin: Warm, dry, no erythema, no rash. Except for left hand, first-degree hot oil burn without blistering, mild light pink erythema, no blistering, no induration, no infectious process appreciated, measuring 6 cm x 4 cm, skin is intact. Abdomen just below umbilicus has 13 cm x 5 cm first-degree burn from hot oil splash, second-degree blister burst open prior to arrival, mild light pink erythema without induration, blister measures 1.5 cm diameter, no drainage, no bruising, no infectious process appreciated. The blister was not dressed prior to arrival to the emergency department. Total burn BSA less than 1%. Back: No tenderness, no CVA tenderness. Extremities: No tenderness, no cyanosis, no clubbing, ROM intact, no edema. Neurologic: Alert and oriented X 3, normal motor function, normal sensory function, no focal deficits noted. Psychologic: Affect normal, judgement normal, mood normal. Current Patient Data Vital Signs Vital Signs Date Time Temp Pulse Resp B/P (MAP) Pulse Ox O2 Delivery O2 Flow Rate FiO2 01/16/21 12:03 99.2 76 18 164/93 (116) 97 Room Air EKG EKG [] Radiology/Procedures Radiology/Procedures [] Heart Score C/O Chest Pain: No Risk Factors: Risk Factors: DM, Current or recent (<one month) smoker, HTN, HLP, family history of CAD, obesity. Risk Scores: Risk Factors: DM, Current or recent (<one month) smoker, HTN, HLP, family history of CAD, obesity. Course & Med Decision Making Course & Med Decision Making Pertinent Labs and Imaging studies reviewed. (See chart for details) 50-year-old female, vital signs reviewed, presents emergency department with minor skin burn from hot oil splashed while making food just prior to arrival. The patient's immunization for tetanus is up-to-date stating less than 5 years ago. Total body surface area less than 1%. Left hand first-degree burn skin intact, abdominal burn first degree with second-degree blister that had burst open prior to arrival, will cleanse with mild skin cleanser, apply bacitracin ointment over blister area and dress with nonadherent dressing by ED nursing staff. Patient reports only mild pain refuses offered pain medication. The patient does have a history of type 2 diabetes. Discussed with patient burn care, daily cleansing 2-3 times a day with application of bacitracin, watch for signs and symptoms of infectious process, will prescribe bacitracin ointment, follow-up with primary care for reevaluation of burn soon, return to ER precautions or concerns. Patient gave verbal understanding of discharge home instructions, follow-up with PCP, [facility], patient was stable and had no further questions and wanted to go home, patient was discharged home without incident. Dragon Disclaimer Dragon Disclaimer This electronic medical record was generated, in whole or in part, using a voice recognition dictation system. Departure Departure: Impression: Primary Impression: Burn by hot liquid Referrals: HOLLAND WOLFE MD (PCP) Patient Instructions: Burn Care, Second-Degree Burn Additional Instructions: You were seen today in the emergency department for a hot oil splash burn to your left hand and abdomen. Your hand has a minor first-degree burn, your abdomen has a small second-degree burn with a blister that had burst open prior to your arrival to the emergency department. Please cleanse daily and dressed with bacitracin ointment as we discussed. I have attached information related to burn care to this document please review. You reported a history of diabetes, please watch for signs and symptoms of infectious process as we discussed. Follow-up with your doctor at the [facility] for a reevaluation of your burn, please return to the emergency department for worsening symptoms or other concerns. EMERGENCY DEPARTMENT GENERAL DISCHARGE INSTRUCTIONS Thank you for coming to [facility] (ED) today and trusting us with you care. We trust that you had a positivie experience in our Emergency Department. If you wish to speak to the department management, you may call the director at [phone]. YOUR FOLLOW UP INSTRUCTIONS ARE FOLLOWS: 1. Do you have a private Doctor? If you do not have a private doctor, please ask for a resource list of physicians or clinics that may be able to assist you with follow up care. 2. The Emergency Physician has interpreted your x-rays. The X-Ray specialist will also review them. If there is a change in the findings, you will be notified in 48 hours when at all possible. 3. A lab test or culture has been done, your results will be reviewed and you will be notified if you need a change in treatment. ADDITIONAL INSTRUCTIONS AND INFORMATION: 1. Your care today has been supervised by a physician who is specially trained in emergency care. Many problems require more than one evaluation for a complete diagnosis and treatment. We recommend that you schedule your follow up appointment as recommended to ensure complete treatment of you illness or injury. If you are unable to obtain follow up care and continue to have a problem, or if your condition worsens, we recommend that you return to the ED. 2. We are not able to safely determine your condition over the phone nor are we able to give sound medical advice over the phone. For these safety reasons, if you call for medical advice we will ask you to come to the ED for further evaluation. 3. If you have any questions regarding these discharge instructions please call the ED at [phone]. SAFETY INFORMATION: In the interest of safety, wellness, and injury prevention; we encourage you to wear your sealbelt, if you smoke; quite smoking, and we encourage family to use a protective helmet for bicycling and other sporting events that present an increased risk for head injury. IF YOUR SYMPTOMS WORSEN OR NEW SYMPTOMS DEVELOP, OR YOU HAVE CONCERNS ABOUT YOUR CONDITION; OR IF YOUR CONDITION WORSENS WHILE YOU ARE WAITING FOR YOUR FOLLOW UP APPOINTMENT; EITHER CONTACT YOUR PRIMARY CARE DOCTOR, THE PHYSICIAN WHOSE NAME AND NUMBER YOU WERE GIVEN, OR RETURN TO THE ED IMMEDIATELY. Scripts Bacitracin/Polymyxin B Sulfate (POLYSPORIN OINTMENT) 28.3 Gm Oint...g. 28.3 GM TP TID for BURN CARE, #1 MISC 0 Refills CLEANSE BURN/BLISTER SITE DAILY WITH GENTLE SOAP AND WATER, APPLY OINTMENT. Prov: MANE ONEIL APRN 01/16/21 MANE ONEIL APRN January 16, 2021 12:39
== END 2021-01-16 12:42 | disposition home or self-care (01) ==
LOC: ER 11:42
DX: T23.202A Burn of second degree of left hand, unspecified site, initial encounter (principal); E11.9 Type 2 diabetes mellitus without complications; I10 Essential (primary) hypertension; Z87.891 Personal history of nicotine dependence; Z88.0 Allergy status to penicillin; X10.2XXA Contact with fats and cooking oils, initial encounter; Y93.89 Activity, other specified; Y92.89 Other specified places as the place of occurrence of the external cause; Y99.8 Other external cause status
CPT/HCPCS: 16020; 99283-25